=== PATIENT | female | born 1995 | race African-American/Black ===

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

== ENCOUNTER 2017-05-07 19:50 | Outpatient (CLI) | payer OTHER | END 2017-05-07 21:05 | disposition home or self-care (01) | LOC: M LDO 19:50 | DX: O62.0 Primary inadequate contractions (principal); Z3A.36 36 weeks gestation of pregnancy; Z79.899 Other long term (current) drug therapy | CPT/HCPCS: 59025 ==

== ENCOUNTER 2017-05-17 03:59 | Inpatient (IN) | payer OTHER ==
[2017-05-17] MEDS: LACTATED RINGER'S 1000 ML IV (05:31)
[2017-05-17 05:38] LABS: HEMATOCRIT 39.8 % (36.0-47.0); HEMOGLOBIN 13.5 g/dl (12.0-16.0); MEAN CORPUSCULAR HEMOGLOBIN 27.3 pg (27.0-33.0); MEAN CORPUSCULAR HGB CONC 33.9 g/dl (32.0-36.5); MEAN CORPUSCULAR VOLUME 80.4 fl (80.0-96.0); PLATELET COUNT, AUTOMATED 219 10^3/uL (150-450); RED BLOOD COUNT 4.95 10^6/uL (4.00-5.40); RED CELL DISTRIBUTION WIDTH 14.6 % (11.5-14.5); WHITE BLOOD COUNT 7.5 10^3/uL (4.0-10.0)
[2017-05-17] MEDS: PENICILLIN G POTASSIUM IV 5 MU in D5W MINI-BAG PLUS 100 ML IV (05:39)
[2017-05-17 06:03] LABS: AMPHETAMINES URINE REFLEX NEGATIVE (NEGATIVE); BARBITURATES URINE REFLEX NEGATIVE (NEGATIVE); BENZODIAZEPINES URINE REFLEX NEGATIVE (NEGATIVE); CANNABINOIDS URINE REFLEX NEGATIVE (NEGATIVE); COCAINE METABOLITE URINE REFLE NEGATIVE (NEGATIVE); METHADONE URINE REFLEX NEGATIVE (NEGATIVE); OPIATES URINE REFLEX NEGATIVE (NEGATIVE); PHENCYCLIDINE URINE REFLEX NEGATIVE (NEGATIVE)
[2017-05-17] MEDS ORDERED: FENTANYL 2MCG/ML ROPIVACAINE 0.2% IN 0.9% NACL 200ML IVBAG As Ordered (07:09)
[2017-05-17] MEDS: PENICILLIN G POTASSIUM IV 2.5 MU in APPROPRIATE DILUENT 1 EA IV ×3 (10:11→18:07)
[2017-05-17] MEDS: LR 1,000 ML IV ×2 (10:11→14:12)
[2017-05-17] MEDS ORDERED: OXYTOCIN 30 UNITS IN 0.9% NaCl 500ML IV BAG (J2590) As Ordered (14:33)
[2017-05-17] MEDS ORDERED: PROMETHAZINE 25 MG TAB PO (21:15)
[2017-05-17] MEDS ORDERED: MEASLES,MUMPS,RUBELLA VACCINE INJ (MMR-II) (90707) SC (21:15)
[2017-05-17] MEDS ORDERED: ACETAMINOPHEN 500 MG TAB PO (21:15)
[2017-05-17] MEDS ORDERED: METHYLERGONOVINE MALEATE 0.2 MG/ML VIAL (J2210) IM (21:15)
[2017-05-17] MEDS ORDERED: ONDANSETRON 4MG/2ML VIAL (J2405) IV (21:15)
[2017-05-17] MEDS ORDERED: RHOGAM 300 MCG (1500 IU) INJ (J2790) IM (21:15)
[2017-05-17] MEDS ORDERED: DIBUCAINE 1% OINTMENT 30GM TOP (21:15)
[2017-05-17] MEDS: DOCUSATE SODIUM 100 MG CAP PO (23:24)
[2017-05-18] MEDS: LR 1,000 ML IV (07:14)
[2017-05-18] MEDS: OXYTOCIN DRIP 30 UNITS in APPROPRIATE DILUENT 1 EA IV (07:14)
[2017-05-18] MEDS: PRENATAL VITAMINS CHEWABLE TABLET PO (07:47)
[2017-05-18] MEDS: DOCUSATE SODIUM 100 MG CAP PO ×2 (07:47→20:37)
[2017-05-19] MEDS: DOCUSATE SODIUM 100 MG CAP PO (08:04)
[2017-05-19] MEDS: PRENATAL VITAMINS CHEWABLE TABLET PO (08:04)
[2017-05-19] MEDS: IBUPROFEN 800 MG TAB PO (08:05)
== END 2017-05-19 13:50 | disposition home or self-care (01) | DRG 775 ==
LOC: M LDO 03:59 → M LDI 05:04 → M OBS 22:57
PROVIDERS: Obstetrics & Gynecology
PROC: 10E0XZZ Delivery of Products of Conception, External Approach (ICD-10-PCS; principal; 2017-05-17)
PROC: 0HQ9XZZ Repair Perineum Skin, External Approach (ICD-10-PCS; 2017-05-17)
DX: O99.02 Anemia complicating childbirth (principal); D64.2 Secondary sideroblastic anemia due to drugs and toxins; Z3A.39 39 weeks gestation of pregnancy; O99.214 Obesity complicating childbirth; E66.9 Obesity, unspecified; O99.824 Streptococcus B carrier state complicating childbirth; D57.3 Sickle-cell trait; O70.0 First degree perineal laceration during delivery; Z37.0 Single live birth; O71.82 Other specified trauma to perineum and vulva

== ENCOUNTER → 2018-07-23 | Outpatient (REF) | payer OTHER ==
[~2018-07-23] MED LIST: COLA100C5 PO; MAPA500T2 PO; MOTR200T44 PO; PRENTAB16 PO; ZOFR4TAB14 PO
[2018-07-23 15:18] LABS: CHLAMYDIA DNA AMPLIFICATION POSITIVE (NEGATIVE); GC DNA AMPLIFICATION NEGATIVE (NEGATIVE)
[2018-07-25 14:44] LABS: HPV HYBRID CAPTURE II Negative (Negative)
== END ==
LOC: M LAB REF 13:29
PROVIDERS: ATTEND Nurse Practitioner Family
DX: Z13.9 Encounter for screening, unspecified (principal); Z12.4 Encounter for screening for malignant neoplasm of cervix; N87.0 Mild cervical dysplasia

== ENCOUNTER → 2018-11-12 | Outpatient (REF) | payer OTHER ==
[2018-11-12 18:36] LABS: ALBUMIN 3.7 GM/DL (3.2-5.2); ALT/SGPT 20 U/L (12-78); BILIRUBIN,TOTAL 0.2 MG/DL (0.2-1.0); BLOOD UREA NITROGEN 8 MG/DL (7-18); CALCIUM LEVEL 8.8 MG/DL (8.5-10.1); CARBON DIOXIDE LEVEL 28 MEQ/L (21-32); CHLORIDE LEVEL 105 MEQ/L (98-107); CHOLESTEROL LEVEL 163 MG/DL (<200); CHOLESTEROL RISK RATIO 3.018 (<5); CREATININE FOR GFR 0.73 MG/DL (0.55-1.30); FREE T4 1.04 NG/DL (0.76-1.46); GLOMERULAR FILTRATION RATE > 60.0 (>60); GLUCOSE, FASTING 96 MG/DL (70-100); HDL CHOLESTEROL 54 MG/DL (>40); LDL CHOLESTEROL 97 MG/DL (<100); NON-HDL-C 109 MG/DL; POTASSIUM SERUM 4.3 MEQ/L (3.5-5.1); SODIUM LEVEL 138 MEQ/L (136-145); TOTAL PROTEIN 7.5 GM/DL (6.4-8.2); TRIGLYCERIDES LEVEL 58 MG/DL (<150)
[2018-11-12 18:43] LABS: BASO % 0.9 % (0.0-1.0); EOS # 0.1 10^3/uL (0.0-0.50); EOS % 2.5 % (0.0-3.0); HEMATOCRIT 37.9 % (36.0-47.0); HEMOGLOBIN 12.3 g/dl (12.0-15.5); LYMPH # 1.5 10^3/uL (1.5-6.5); LYMPH % 33.7 % (24.0-44.0); MEAN CORPUSCULAR HEMOGLOBIN 25.4 pg (27.0-33.0); MEAN CORPUSCULAR HGB CONC 32.5 g/dl (32.0-36.5); MEAN CORPUSCULAR VOLUME 78.1 fl (80.0-96.0); MONO # 0.3 10^3/uL (0.0-0.8); MONO % 7.7 % (0.0-5.0); NEUTROPHILS # 2.4 10^3/uL (1.8-7.7); PLATELET COUNT, AUTOMATED 325 10^3/uL (150-450); RED BLOOD COUNT 4.85 10^6/uL (4.00-5.40); WHITE BLOOD COUNT 4.4 10^3/uL (4.0-10.0)
== END ==
LOC: M LAB REF 17:51
PROVIDERS: ATTEND Nurse Practitioner Family
DX: Z13.9 Encounter for screening, unspecified (principal)

== ENCOUNTER → 2019-02-20 | Outpatient (REF) | payer OTHER ==
[2019-02-20 21:03] LABS: CHLAMYDIA DNA AMPLIFICATION NEGATIVE (NEGATIVE); GC DNA AMPLIFICATION NEGATIVE (NEGATIVE)
== END ==
LOC: M LAB REF 16:42
PROVIDERS: ATTEND Advanced Practice Midwife
DX: Z11.3 Encounter for screening for infections with a predominantly sexual mode of transmission (principal)

== ENCOUNTER → 2019-02-20 | Outpatient (CLI) | payer OTHER | LOC: M SMT 14:01 | PROVIDERS: ATTEND Advanced Practice Midwife | DX: Z15.09 Genetic susceptibility to other malignant neoplasm (principal) ==

== ENCOUNTER → 2019-11-16 | Outpatient (CLI) | payer OTHER ==
[2019-11-16 19:12] LABS: BASO % 0.4 % (0.0-1.0); EOS # 0.1 10^3/uL (0.0-0.5); EOS % 1.4 % (0.0-3.0); HEMATOCRIT 35.6 % (36.0-47.0); HEMOGLOBIN 11.5 g/dl (12.0-15.5); LYMPH # 1.6 10^3/uL (1.5-5.0); LYMPH % 27.7 % (24.0-44.0); MEAN CORPUSCULAR HEMOGLOBIN 25.9 pg (27.0-33.0); MEAN CORPUSCULAR HGB CONC 32.3 g/dl (32.0-36.5); MEAN CORPUSCULAR VOLUME 80.2 fl (80.0-96.0); MONO # 0.4 10^3/uL (0.0-0.8); MONO % 6.2 % (0.0-5.0); NEUTROPHILS # 3.6 10^3/uL (1.5-8.5); NEUTROPHILS % 64.1 % (36.0-66.0); PLATELET COUNT, AUTOMATED 315 10^3/uL (150-450); RED BLOOD COUNT 4.44 10^6/uL (4.00-5.40); WHITE BLOOD COUNT 5.7 10^3/uL (4.0-10.0)
[2019-11-16 19:54] LABS: HEMOGLOBIN A1c 5.2 %
[2019-11-16 20:19] LABS: HIV 1&2 SCREEN CENTAUR NEGATIVE (NEGATIVE)
[2019-11-16 20:57] LABS: SICKLE CELL SCREEN POSITIVE (NEGATIVE)
[2019-11-16 21:20] LABS: CHLAMYDIA DNA AMPLIFICATION NEGATIVE (NEGATIVE); GC DNA AMPLIFICATION NEGATIVE (NEGATIVE)
[2019-11-18 12:51] LABS: HEPATITIS B SURFACE ANTIGEN NEGATIVE (NEGATIVE); HEPATITIS C VIRUS ABY INDEX 0.1 INDEX (<0.8)
== END ==
LOC: M LAB 15:35
PROVIDERS: ATTEND Advanced Practice Midwife
DX: O99.211 Obesity complicating pregnancy, first trimester (principal); Z3A.00 Weeks of gestation of pregnancy not specified

== ENCOUNTER → 2019-11-25 | Outpatient (REF) | payer OTHER ==
[2020-01-20 13:49] LABS: HGB SOLUBILITY SEE SEPARATE REPORT
== END ==
LOC: M PLALAB 10:29
PROVIDERS: ATTEND Advanced Practice Midwife
DX: O99.212 Obesity complicating pregnancy, second trimester (principal)

== ENCOUNTER → 2019-12-15 | Outpatient (CLI) | payer OTHER ==
--- NOTE | 2020-01-29 10:14 | REP ---
OB ULTRASOUND ANATOMY SCAN TECHNIQUE: Real-time sonographic evaluation of gravid uterus performed. COMPARISON: There are no prior studies for comparison. FINDINGS: There is a single living uterine gestation. The estimated gestational age is 19 weeks 3 days based on todays ultrasound measurements, estimated date of confinement (EDC) 05/07/2020. BPD 45 mm, 19 weeks 4 days; AC 141 mm, 19 weeks 3 days; femur length 30 mm, 19 weeks 2 days; head circumference 165 mm, 19 weeks 1 day. position is breech. Placenta is anterior and grade 0 with no previa or abruption. anatomy today includes lateral ventricles, four chamber heart, three vessel cord, posterior fossa, stomach, cardiac outflow tracts, cord insertion, thalami, kidneys, bladder, and upper lip, which are all grossly unremarkable. Spine is not well seen due to position. Cervix is closed and measures 4.1 cm in length. heart rate is 147 beats per minute. Amniotic fluid appears within normal limits. Estimated weight is 291 grams. MTDD
== END ==
LOC: M RAD 16:00
PROVIDERS: ATTEND Advanced Practice Midwife
DX: O99.212 Obesity complicating pregnancy, second trimester (principal); E66.9 Obesity, unspecified; Z3A.19 19 weeks gestation of pregnancy

== ENCOUNTER → 2019-12-22 | Outpatient (CLI) | payer OTHER | LOC: M LAB 11:10 | PROVIDERS: ATTEND Advanced Practice Midwife | DX: O99.211 Obesity complicating pregnancy, first trimester (principal); E66.9 Obesity, unspecified ==

== ENCOUNTER → 2020-01-01 | Outpatient (CLI) | payer OTHER ==
--- NOTE | 2020-02-02 11:40 | REP ---
FOLLOW-UP OBSTETRIC ULTRASOUND CLINICAL: Follow-up obstetrical ultrasound for anatomical evaluation. COMPARISON: 12/15/2019. TECHNIQUE: Ultrasound examination demonstrates single live intrauterine in variable presentation. Placenta noted anteriorly and grade 0. No evidence for placenta previa or abruption. Amniotic fluid volume is normal. Cervix measures 5 cm in length and appears closed. Gestational age by current biometrical measurements 21 weeks 5 days. Estimated weight 439 grams (39th percentile). heart rate 143 beats per minute. Anatomical assessment demonstrates normal images of the spine. IMPRESSION: Single live intrauterine in variable presentation demonstrating appropriate estimated weight. In conjunction with prior examination, anatomical assessment is complete and normal. MTDD
== END ==
LOC: M WHC 15:35
PROVIDERS: ATTEND Advanced Practice Midwife
DX: Z34.82 Encounter for supervision of other normal pregnancy, second trimester (principal); Z3A.21 21 weeks gestation of pregnancy

== ENCOUNTER → 2020-01-26 | Outpatient (CLI) | payer OTHER | LOC: M PLALAB 12:40 | PROVIDERS: ATTEND Advanced Practice Midwife | DX: Z34.82 Encounter for supervision of other normal pregnancy, second trimester (principal); Z36.89 Encounter for other specified antenatal screening ==

== ENCOUNTER → 2020-03-29 | Outpatient (CLI) | payer OTHER ==
[2020-03-29 12:58] LABS: HEMATOCRIT 30.1 % (36.0-47.0); HEMOGLOBIN 9.4 g/dl (12.0-15.5); MEAN CORPUSCULAR HEMOGLOBIN 23.3 pg (27.0-33.0); MEAN CORPUSCULAR HGB CONC 31.2 g/dl (32.0-36.5); MEAN CORPUSCULAR VOLUME 74.7 fl (80.0-96.0); PLATELET COUNT, AUTOMATED 328 10^3/uL (150-450); RED BLOOD COUNT 4.03 10^6/uL (4.00-5.40); WHITE BLOOD COUNT 6.2 10^3/uL (4.0-10.0)
== END ==
LOC: M LAB 11:02
PROVIDERS: ATTEND Advanced Practice Midwife
DX: O99.212 Obesity complicating pregnancy, second trimester (principal); Z3A.00 Weeks of gestation of pregnancy not specified

== ENCOUNTER → 2020-04-13 | Outpatient (CLI) | payer OTHER ==
--- NOTE | 2020-04-13 17:05 | REP ---
INDICATION: GROWTH. COMPARISON: 01/01/2020. TECHNIQUE: Real-time sonographic evaluation of gravid uterus performed. FINDINGS: Estimated gestational age is36 weeks 4 days, EDC 05/07/2020. Today's measurements indicate appropriate growth. Presentation: Cephalic Placenta anterior, grade 3, without evidence of placenta previa. heart rate is recorded at 170 beats per minute. Amniotic fluid is subjectively normal. OFELIA 13.7, normal range 7.6-24.6. Closed cervical length is measured at 3.5 cm. Biometry chart: BPD: 87 mm, 35 weeks 0 days, 27th percentile. HC: 299 mm, 33 weeks 1 days, less than 5th percentile AC: 326 mm, weeks 4 days, 49th percentile Femur length: 70 mm, 36 weeks 1 days, 43rd percentile HC to AC ratio: 0.92, normal range 0.92-1.11. Estimated weight: 2792g, 35th percentile. IMPRESSION: Viable single intrauterine gestation as above. <Electronically signed by Gabriel Skelton > 04/13/20 [id number]
== END ==
LOC: M WHC 15:14
PROVIDERS: ATTEND Advanced Practice Midwife
DX: O26.843 Uterine size-date discrepancy, third trimester (principal); Z3A.36 36 weeks gestation of pregnancy

== ENCOUNTER → 2020-04-14 | Outpatient (CLI) | payer OTHER | LOC: M LAB 08:18 | PROVIDERS: ATTEND Advanced Practice Midwife | DX: O99.810 Abnormal glucose complicating pregnancy (principal); Z3A.00 Weeks of gestation of pregnancy not specified ==

== ENCOUNTER → 2020-04-21 | Outpatient (REF) | payer OTHER | LOC: M SFHCWAGY 16:54 | PROVIDERS: ATTEND Advanced Practice Midwife | DX: O99.213 Obesity complicating pregnancy, third trimester (principal) ==

== ENCOUNTER 2020-05-07 18:17 | Inpatient (IN) | payer OTHER ==
[2020-05-07] VITALS (10 sets, daily range): BP systolic 107–134; BP diastolic 55–86
[~2020-05-07] VITALS: Ht 157.5 cm; Wt 106.7 kg
[~2020-05-07 18:17] MED LIST changes: +FERR325T3 PO
[2020-05-07] MEDS ORDERED: LACTATED RINGER'S 1000 ML IV STA (18:49)
[2020-05-07] MEDS ORDERED: LR 1,000 ML IV SCH (18:49)
[2020-05-07] MEDS ORDERED: OXYTOCIN DRIP 30 UNITS in IV 1 EA IV SCH (19:00)
[2020-05-07 19:19] LABS: HEMATOCRIT 31.4 % (36.0-47.0); HEMOGLOBIN 9.4 g/dl (12.0-15.5); MEAN CORPUSCULAR HEMOGLOBIN 22.5 pg (27.0-33.0); MEAN CORPUSCULAR HGB CONC 29.9 g/dl (32.0-36.5); MEAN CORPUSCULAR VOLUME 75.3 fl (80.0-96.0); PLATELET COUNT, AUTOMATED 291 10^3/uL (150-450); RED BLOOD COUNT 4.17 10^6/uL (4.00-5.40); WHITE BLOOD COUNT 6.6 10^3/uL (4.0-10.0)
--- NOTE | 2020-05-07 19:25 | HPEPDOC ---
Obstetrical History & Physical General Date of Admission May 07, 2020 at 18:17 History of Present Illness 25-year-old at 40+0 weeks gestation. Presents for an induction of labor. Indication for induction: Elective non-medically indicated induction She denies vaginal bleeding, loss of fluid or painful, frequent uterine contractions. She reports regular movement. She denies headache, visual changes, right upper quadrant pain, shortness of breath or chest pain. course: Uncomplicated PMH: Sickle cell trait, (father of baby is negative) SH: None Meds: vitamin All: NKDA DIRECTOR OF PHYSICIAN PRACTICES: H/o CT(treated; no other STI), no dysplasia. OB: Term uncomplicated (different FOB) Sochx: No tobacco, alcohol or drug use FamHx:, Noncontributory labs: Blood type A positive, antibody screen negative, HepBsAg neg, HIV neg, rubella immune, Hep C antibody negative, RPR nonreactive, CT/GC neg, urine culture negative, GDM screen negative, GBS negative Past Medical History Allergies Coded Allergies: MS - No Known Drug Allergy (Verified Allergy, Unknown, 11/26/16) Medications Scheduled Docusate Sodium (Colace) 100 Mg Cap, 100 MG PO BID 21/Iron Fu/Folic Acid ( Complete Caplet) 1 Tab Tab, 1 TAB PO DAILY Miscellaneous Medications Ferrous Sulfate (Ferrous Sulfate) 325 Mg Tablet.dr, 325 MG PO Physical Examination Physical Examination GENERAL: Alert and oriented times three. BREAST: . ABDOMEN: Gravid and non-tender to touch. FETUS: Is vertex (VTX) by sterile vaginal examination (SVE), fetus is vertex (VTX) by Juan Carlos. HEART RATE: Regular rate and rhythm. LUNGS: Clear to auscultation (CTA). EXTREMITIES: No edema. No clonus. SVE: 3-4 cm, 75% effaced, -2 station, cephalic, intact EFM: Category 1 heart rate tracing [place]: Irregular contractions Assessment/Plan Assessment 25-year old at 40+0 weeks gestation. Dx:. Full-term gestation, favorable cervix. Reassuring maternal and status. Plan Admit and orient. Routine labs/orders Group B Streptococcus (GBS) negative. Counseled on Pitocin and induction of labor (IOL). Mode of delivery plan: ; as indicated. MARTELL,CONCEPCIÓN R. DO May 07, 2020 19:25
[2020-05-07] MEDS ORDERED: FENTANYL 2MCG/ML ROPIVACAINE 0.2% IN 0.9% NACL 100ML IVBAG As Ordered ONE (22:50)
[2020-05-08] VITALS (20 sets, daily range): BP systolic 101–135; BP diastolic 51–92
[2020-05-08] MEDS ORDERED: ePHEDrine SULFATE 25 MG/5 ML(5MG/ML) SYRINGE IV PRN (00:30)
[2020-05-08] MEDS ORDERED: FENTANYL/ROPIVACAINE/NACL BAG 100 ML EPIDURAL SCH (00:30)
[2020-05-08] MEDS ORDERED: ONDANSETRON 4MG/2ML VIAL IV PRN ×2 (00:30→02:00)
[2020-05-08] MEDS ORDERED: diphenhydrAMINE 50MG/ML VIAL (J1200) IV PRN (00:30)
[2020-05-08] MEDS ORDERED: EPIDURAL/PCA KEYS XX PRN (00:30)
[2020-05-08] MEDS ORDERED: EPIDURAL COMMENT XX SCH (00:30)
[2020-05-08] MEDS ORDERED: REFRIGERATOR IV KEYS XX PRN (00:30)
[2020-05-08] MEDS ORDERED: NALOXONE INJ 0.4MG/1ML VIAL (J2310 PER 1MG) IV PRN (00:30)
[2020-05-08] MEDS ORDERED: LACTATED RINGER'S 1000 ML IV PRN (00:30)
[2020-05-08] MEDS ORDERED: OXYTOCIN DRIP 30 UNITS in IV 1 EA IV SCH (01:47)
[2020-05-08] MEDS: LR 1,000 ML IV SCH ×3 (01:47→17:47)
--- NOTE | 2020-05-08 01:47 | DNPDOC ---
[facility] Delivery Note Delivery Note DATE OF DELIVERY: 05/08/2020 TIME OF DELIVERY: 0131 Spontaneous vaginal delivery. ORDER DISPATCHER CHIEF: Dr. Madhu Summers DO FACOG ANESTHESIA: Epidural LACERATION: None ESTIMATED BLOOD LOSS:. 200 mL. FINDINGS: 7 pound 2 ounce (3240 g) female infant, Score, 7 and 9. DELIVERY SUMMARY: The active phase and second stage of labor progressed in normal fashion.. She received Pitocin augmentation throughout her labor course. The head delivered in the JARON position, and restituted LOT. No nuchal cord was noted. The anterior shoulder delivered with gentle downward guidance and the remainder of the body delivered with ease. The baby was placed on the patient's chest. Delayed cord clamping occurred for approximately 1 minute. The cord was then doubly clamped and cut. IV Pitocin was bolused to actively manage the third stage of labor. The placenta delivered intact without any difficulty within 10 minutes of delivery. The uterine fundus was noted to be firm and 2 cm below the umbilicus. The cervix, vagina, vulva and perineum were inspected. No laceration was noted. Excellent hemostasis was noted. Sponge, needle and instrument counts were correct per protocol. DO JEMAL Staton JONATHAN R. DO May 08, 2020 01:47
[2020-05-08] MEDS ORDERED: DOCUSATE SODIUM 100MG CAPSULE PO PRN (02:00)
[2020-05-08] MEDS ORDERED: IBUPROFEN 600MG TAB PO PRN (02:00)
[2020-05-08] MEDS ORDERED: IBUPROFEN 800 MG TAB PO PRN (02:00)
[2020-05-08] MEDS ORDERED: BENZOCAINE 20% HEMORRHOIDAL OINTMENT 28GM TUBE TOP PRN (02:00)
[2020-05-08] MEDS ORDERED: ACETAMINOPHEN 500 MG TAB PO PRN (02:00)
[2020-05-08] MEDS ORDERED: MEASLES,MUMPS,RUBELLA VACCINE INJ (MMR-II) (90707) SC SCH (02:00)
[2020-05-08] MEDS ORDERED: PROMETHAZINE 25 MG TAB PO PRN (02:00)
[2020-05-08] MEDS ORDERED: ACETAMINOPHEN TAB 650MG DOSE (2X325MG) PO PRN (02:00)
[2020-05-08] MEDS ORDERED: RHOGAM 300 MCG (1500 IU) INJ (J2790) IM SCH (02:00)
[2020-05-08] MEDS: PRENATAL VITAMINS CHEWABLE TABLET PO SCH (09:49)
[2020-05-09 06:00] VITALS: BP 108/51
--- NOTE | 2020-05-09 07:15 | IPNPDOC ---
Progress Note Date of Service: May 09, 2020 Day#: 1 Progress Note SUBJECT: Status post . Pain well controlled. She has been ambulating, voiding spontaneously without issue and tolerating regular diet. Lochia decreasing/minimal. OBJECTIVE: VITAL SIGNS: Within normal limits, afebrile. Alert and oriented times three. Abdomen: Fundus firm at U-2. Soft, NTTP. ASSESSMENT: Status post uncomplicated spontaneous vaginal delivery. Vitals within normal limits, afebrile, hemodynamically stable with no evidence of infec tion. PLAN: Discharge to home today. Tylenol and Motrin for pain. Routine instructions/precautions reviewed. Routine PP visit in 6 weeks in clinic. VS, I&O, 24H, Fishbone Vital Signs/I&O Vital Signs Date Time Temp Pulse Resp B/P (MAP) Pulse Ox O2 Delivery O2 Flow Rate FiO2 05/09/20 06:00 98.9 81 18 108/51 (70) CONCEPCIÓN MARTELL DO May 09, 2020 07:15
[2020-05-09] MEDS: PRENATAL VITAMINS CHEWABLE TABLET PO SCH (08:36)
[2020-05-09 17:51] VITALS: BP 122/73
[2020-05-10 06:00] VITALS: BP 118/56
[2020-05-10] MEDS: PRENATAL VITAMINS CHEWABLE TABLET PO SCH (07:24)
--- NOTE | 2020-05-10 08:44 | DS.PDOC ---
Discharge Summary General Date of Admission May 07, 2020 at 18:17 Date of Discharge 05/10/2020 Discharge Summary PROCEDURES PERFORMED DURING STAY: . ADMITTING DIAGNOSES: 1. Elective IOL at Term. DISCHARGE DIAGNOSES: 1. Day 2. COMPLICATIONS/CHIEF COMPLAINT: Elective IOL. HISTORY OF PRESENT ILLNESS: Lindsey is a 25 y/o G2 now P2002 who was admitted to L&D for an elective IOL. She is doing well on day 2. Reports voiding without difficulty, passing flatus, ambulating well, and tolerating regular diet. without issue. Reports lochia is minimal. Pain well controlled with Tylenol and Motrin. Denies SOB, chest pain, diffic ulty breathing. Denies headaches, visual changes, nausea/vomiting. Declined Depo for control today. Desires discharge home today. HOSPITAL COURSE: Uncomplicated. DISCHARGE MEDICATIONS: Please see below. ALLERGIES: Please see below. PHYSICAL EXAMINATION ON DISCHARGE: VITAL SIGNS: Please see below. GENERAL: Alert and oriented x3. HEENT: Normal on inspection NECK: Supple, no JVD CARDIOVASCULAR EXAMINATION: Regular rate and rhythm. RESPIRATORY EXAMINATION: Regular respirations, no accessory muscle use ABDOMINAL EXAMINATION: Soft, nontender. Fundus at U-1. EXTREMITIES: No edema, no calf tenderness. Negative clonus, DTRs +2. SKIN: Intact, dry, appropriate color for race. NEUROLOGICAL EXAMINATION: Grossly intact. Denies headache PSYCHIATRIC EXAMINATION: Denies depression symptoms. LABORATORY DATA: Please see below. PROGNOSIS: Good ACTIVITY: As tolerated. DIET: Regular DISCHARGE PLAN: Home DISPOSITION: Stable. DISCHARGE INSTRUCTIONS: 1. Tylenol and Motrin as needed. 2. Nothing in the vagina for 6weeks 3. Reviewed warning signs to report for endometritis, mastitis, DVT/PE, depression, and preeclampsia. ITEMS TO FOLLOWUP ON ON OUTPATIENT: 1. 6-8 weeks . DISCHARGE CONDITION: Stable. TIME SPENT ON DISCHARGE: Greater than 15 minutes. Vital Signs/I&Os Vital Signs Date Time Temp Pulse Resp B/P (MAP) Pulse Ox O2 Delivery O2 Flow Rate FiO2 05/10/20 06:00 98.5 87 20 118/56 (76) Discharge Medications Scheduled Docusate Sodium (Colace) 100 Mg Cap, 100 MG PO BID, (Reported) Ferrous Sulfate (Ferrous Sulfate) 325 Mg Tablet.dr, 325 MG PO TID, (Reported) 21/Iron Fu/Folic Acid ( Complete Caplet) 1 Tab Tab, 1 TAB PO DAILY, (Reported) Allergies Coded Allergies: No Known Allergies (Unverified , 05/08/20) RADHA RIOJAS CNM May 10, 2020 08:31
== END 2020-05-10 12:50 | disposition home or self-care (01) | DRG 560 ==
LOC: M LDI 18:17 → M OBS 05-08 04:15
PROVIDERS: ADMIT Obstetrics & Gynecology; ATTEND Obstetrics & Gynecology
PROC: 3E033VJ Introduction of Other Hormone into Peripheral Vein, Percutaneous Approach (ICD-10-PCS; 2020-05-07)
PROC: 10E0XZZ Delivery of Products of Conception, External Approach (ICD-10-PCS; principal; 2020-05-08)
DX: O48.0 Post-term pregnancy (principal); Z37.0 Single live birth; Z3A.40 40 weeks gestation of pregnancy

== ENCOUNTER 2021-01-09 14:36 | Emergency (ER) | payer OTHER ==
[~2021-01-09] VITALS: Ht 157.5 cm; Wt 86.8 kg
[2021-01-09 14:37] VITALS: BP 141/87
[2021-01-09] MEDS ORDERED: ACETAMINOPHEN 500 MG TAB PO ONE (17:00)
== END 2021-01-09 17:53 | disposition home or self-care (01) ==
LOC: M ED 14:36
DX: R50.9 Fever, unspecified (principal); R51.9 Headache, unspecified; M79.10 Myalgia, unspecified site; J45.909 Unspecified asthma, uncomplicated
CPT/HCPCS: 99282; U0003